=== PATIENT | male | born 1965 | race African-American/Black ===

== ENCOUNTER 2017-01-07 02:21 | Emergency (ER) | payer MEDICAID ==
[~2017-01-07] VITALS: Ht 170.2 cm; Wt 91.0 kg
[~2017-01-07 02:21] MED LIST: AMLO10TA4 PO; LISI10TA5 PO
[2017-01-07] MEDS ORDERED: ADENOSINE 3 MG/ML 2ML VIAL IV ONE ×2 (03:00→03:15)
[2017-01-07 03:12] LABS: BASOPHILS % 0.4 % (0.0-2.0); EOSINOPHILS % 1.8 % (0.0-5.0); HEMATOCRIT. 34.6 % (42.0-52.0); HEMOGLOBIN. 11.8 g/dL (14.0-18.0); LYMPHOCYTES % 24.9 % (20.0-50.0); MEAN CORPUSCULAR HEMOGLOBIN 29.4 pg (28.0-32.0); MEAN CORPUSCULAR VOLUME 86.4 fL (80.0-94.0); MEAN PLATELET VOLUME 7.9 fl (7.4-10.4); MONOCYTES % 8.6 % (2.0-8.0); NEUTROPHILS % 64.3 % (40.0-76.0); PLATELET 272 x1000/uL (130-400); RED CELL DISTRIBUTION WIDTH 14.9 % (11.6-14.6)
[2017-01-07 03:18] LABS: INR 1.1; PROTHROMBIN TIME 11.3 sec (9.4-11.6)
[2017-01-07 03:30] LABS: CARBON DIOXIDE 26 mEq/L (21-32); CHLORIDE 108 mEq/L (98-107); ETHANOL BLOOD < 10 mg/dL; TROPONIN I 0.07 ng/mL (0.00-0.04)
[2017-01-07] MEDS ORDERED: ASPIRIN 81MG TABLET PO NR (04:00)
[2017-01-07 04:37] LABS: CLARITY URINE CLEAR (CLEAR); COLOR URINE YELLOW (YELLOW); GLUCOSE URINE 1+ (NEGATIVE); KETONES URINE NEGATIVE (NEGATIVE); LEUKOCYTE ESTERASE URINE NEGATIVE (NEGATIVE); NITRITE URINE NEGATIVE (NEGATIVE); OCCULT BLOOD URINE TRACE (NEGATIVE); PROTEIN URINE 1+ (NEGATIVE); SPECIFIC GRAVITY URINE 1.016 (1.005-1.030); UROBILINOGEN URINE 0.2 E.U./dL (0.2-1.0)
[2017-01-07 04:55] LABS: *AMPHETAMINES SCREEN URINE NEGATIVE (NEGATIVE); *BARBITURATES SCREEN URINE NEGATIVE (NEGATIVE); *BENZODIAZEPINES SCREEN URINE NEGATIVE (NEGATIVE); *COCAINE SCREEN URINE NEGATIVE (NEGATIVE); CANNABINOID URINE SCREEN PRESUMTIVE POSITIVE (NEGATIVE); METHADONE URINE SCREEN NEGATIVE (NEGATIVE); OPIATES URINE SCREEN NEGATIVE (NEGATIVE); PHENCYCLIDINE URINE SCREEN NEGATIVE (NEGATIVE)
[2017-01-07 07:26] VITALS: BP 156/95
[2017-01-07] MEDS ORDERED: NA PHOS,M-B/NA PHOS,DI-BA ENEMA 118ML PR PRN (07:45)
[2017-01-07] MEDS ORDERED: ACETAMINOPHEN 325MG TABLET PO PRN (07:45)
[2017-01-07] MEDS ORDERED: HYDROCODONE/ACETAMINOPHEN 5/325MG TABLET PO PRN (07:45)
[2017-01-07] MEDS ORDERED: IPRATROPIUM/ALBUTEROL 0.5-3(2.5)MG/3ML NEB INH PRN (07:45)
[2017-01-07] MEDS ORDERED: GUAIFENESIN 200MG/10ML SUGAR FREE UDC PO PRN (07:45)
[2017-01-07] MEDS ORDERED: ACETAMINOPHEN 650MG/20.3ML UDC GT PRN (07:45)
[2017-01-07] MEDS ORDERED: MAGNESIUM/ALUMINUM HYDROXIDE/SIMETHICONE 30ML UDC PO PRN (07:45)
[2017-01-07] MEDS ORDERED: CLONIDINE 0.1MG TABLET PO PRN (07:45)
[2017-01-07] MEDS ORDERED: DOCUSATE SODIUM 100MG CAPSULE PO PRN (07:45)
[2017-01-07] MEDS ORDERED: ACETAMINOPHEN 650MG SUPP PR PRN (07:45)
[2017-01-07] MEDS ORDERED: ONDANSETRON HCL 4MG/2ML VIAL IV PRN (07:45)
[2017-01-07] MEDS ORDERED: SODIUM CHLORIDE 0.9% INJ 3ML FLUSH IVF SCH (14:00)
[2017-01-08] MEDS ORDERED: HYDR25TA PO (03:49)
[2017-01-08] MEDS ORDERED: OMEP20TA2 PO (03:49)
[2017-01-08] MEDS ORDERED: METO-396 PO (03:50)
== END 2017-01-07 07:40 | disposition left against medical advice (07) ==
LOC: ER 02:29 → CANBEDREQ 08:30
DX: I47.1 Supraventricular tachycardia (principal); E87.6 Hypokalemia; D64.9 Anemia, unspecified; I10 Essential (primary) hypertension
CPT/HCPCS: 36415; 71010; 80053; 80305; 81001; 83880; 84484; 85025; 85610; 93005; 99152; 99291; G0482; J0153; Z7610

== ENCOUNTER 2017-01-08 03:23 | Inpatient (IN) | payer MEDICAID ==
[~2017-01-08] VITALS: Ht 182.9 cm; Wt 104.3 kg
[2017-01-08] MEDS ORDERED: ONDANSETRON HCL 4MG/2ML VIAL IV STA (03:44)
[2017-01-08] MEDS ORDERED: ADENOSINE 3 MG/ML 2ML VIAL IV ONE (03:45)
[2017-01-08] MEDS ORDERED: HYDR25TA PO (03:49)
[2017-01-08] MEDS ORDERED: OMEP20TA2 PO (03:49)
[2017-01-08] MEDS ORDERED: METO-396 PO (03:50)
[2017-01-08 03:59] LABS: BASOPHILS % 0.5 % (0.0-2.0); EOSINOPHILS % 1.7 % (0.0-5.0); HEMATOCRIT. 35.8 % (42.0-52.0); HEMOGLOBIN. 12.3 g/dL (14.0-18.0); LYMPHOCYTES % 22.7 % (20.0-50.0); MEAN CORPUSCULAR HEMOGLOBIN 29.4 pg (28.0-32.0); MEAN CORPUSCULAR VOLUME 85.6 fL (80.0-94.0); MEAN PLATELET VOLUME 7.6 fl (7.4-10.4); MONOCYTES % 7.1 % (2.0-8.0); PLATELET 275 x1000/uL (130-400); RED BLOOD CELL COUNT 4.17 mill/uL (4.7-6.1); RED CELL DISTRIBUTION WIDTH 15.1 % (11.6-14.6)
[2017-01-08 04:15] LABS: INR 1.1; PROTHROMBIN TIME 10.9 sec (9.4-11.6)
[2017-01-08 04:16] LABS: CARBON DIOXIDE 27 mEq/L (21-32); CHLORIDE 107 mEq/L (98-107); TROPONIN I 0.05 ng/mL (0.00-0.04)
[2017-01-08 08:00] VITALS: BP 148/103
[2017-01-08 09:31] VITALS: BP 148/103
[2017-01-08] MEDS ORDERED: TEMAZEPAM 15MG CAPSULE PO PRN (10:15)
[2017-01-08] MEDS ORDERED: ONDANSETRON HCL 4MG/2ML VIAL IV PRN (10:15)
[2017-01-08] MEDS ORDERED: HYDROCODONE/ACETAMINOPHEN 5/325MG TABLET PO PRN (10:15)
[2017-01-08] MEDS ORDERED: ACETAMINOPHEN 325MG TABLET PO PRN (10:15)
[2017-01-08] MEDS: LISINOPRIL 20MG TABLET PO SCH (10:47)
[2017-01-08] MEDS: FAMOTIDINE 20MG TABLET PO SCH ×2 (10:47→21:08)
[2017-01-08] MEDS: HYDROCHLOROTHIAZIDE 25MG TABLET PO SCH (10:48)
[2017-01-08] MEDS: AMLODIPINE 10MG TABLET PO SCH (10:50)
[2017-01-08] MEDS: ENOXAPARIN 30MG/0.3ML SYR SUBCUT SCH ×2 (10:51→21:11)
[2017-01-08] MEDS: METOPROLOL TARTRATE 25MG TABLET PO SCH ×2 (10:57→21:08)
[2017-01-08 12:00] VITALS: BP 173/102
[2017-01-08] MEDS ORDERED: POTASSIUM CHLORIDE INJ 40 MEQ in DEXT 5% WATER 250 ML IV NR (12:00)
[2017-01-08 16:00] VITALS: BP 146/101
[2017-01-08] MEDS ORDERED: CLONIDINE 0.1MG TABLET PO PRN (17:30)
[2017-01-08 19:23] VITALS: BP 133/89
[2017-01-08 20:00] VITALS: BP 154/104
[2017-01-09] VITALS: BP 138/89
[2017-01-09 06:00] VITALS: BP 139/93
[2017-01-09 06:33] LABS: BASOPHILS % 0.4 % (0.0-2.0); EOSINOPHILS % 1.6 % (0.0-5.0); HEMATOCRIT. 34.9 % (42.0-52.0); HEMOGLOBIN. 11.9 g/dL (14.0-18.0); LYMPHOCYTES % 21.8 % (20.0-50.0); MEAN CORPUSCULAR HEMOGLOBIN 29.1 pg (28.0-32.0); MEAN CORPUSCULAR VOLUME 85.4 fL (80.0-94.0); MONOCYTES % 7.4 % (2.0-8.0); NEUTROPHILS % 68.8 % (40.0-76.0); PLATELET 248 x1000/uL (130-400); RED BLOOD CELL COUNT 4.09 mill/uL (4.7-6.1); RED CELL DISTRIBUTION WIDTH 14.8 % (11.6-14.6)
[2017-01-09 07:34] LABS: CARBON DIOXIDE 28 mEq/L (21-32); CHLORIDE 105 mEq/L (98-107); HDL CHOLESTEROL 35 mg/dL (40-59); LDL CHOLESTEROL 82 mg/dL (5-100)
[2017-01-09 07:59] VITALS: BP 142/95
[2017-01-09] MEDS: AMLODIPINE 10MG TABLET PO SCH (08:46)
[2017-01-09] MEDS: LISINOPRIL 20MG TABLET PO SCH (08:46)
[2017-01-09] MEDS: HYDROCHLOROTHIAZIDE 25MG TABLET PO SCH (08:46)
[2017-01-09] MEDS: ENOXAPARIN 30MG/0.3ML SYR SUBCUT SCH (08:47)
[2017-01-09] MEDS: METOPROLOL TARTRATE 25MG TABLET PO SCH (08:47)
[2017-01-09] MEDS: FAMOTIDINE 20MG TABLET PO SCH (08:47)
[2017-01-09] MEDS ORDERED: POTASSIUM CHLORIDE 20MEQ TABLET SR PO SCH (09:00)
[2017-01-09 11:17] VITALS: BP 144/100
[2017-01-09 11:18] VITALS: BP 145/91
[2017-01-09 15:21] VITALS: BP 145/91
[2017-01-09] MEDS ORDERED: METOPROLOL TARTRATE 25MG TABLET PO SCH (21:00)
== END 2017-01-09 17:50 | disposition home or self-care (01) | DRG 201 ==
LOC: ER 03:23 → EDBEDREQ 05:12 → ENRESERV 07:36 → 6WST 07:36
PROVIDERS: ADMIT Internal Medicine; ATTEND Internal Medicine
DX: I47.1 Supraventricular tachycardia (principal); N17.9 Acute kidney failure, unspecified; E44.1 Mild protein-calorie malnutrition; I10 Essential (primary) hypertension; E87.6 Hypokalemia; N28.9 Disorder of kidney and ureter, unspecified; Z82.3 Family history of stroke; Z82.49 Family history of ischemic heart disease and other diseases of the circulatory system; F14.10 Cocaine abuse, uncomplicated; I16.9 Hypertensive crisis, unspecified
CPT/HCPCS: 36415; 71010; 80048; 80053; 80061; 80305; 81001; 83036; 83880; 84443; 84484; 85025; 85610; 93005; 93306; 96374; 96375; 99152; 99285; 99291; G0482; J0153; J1650; J2405; J3480; J7060

== ENCOUNTER 2017-06-04 05:09 | Emergency (ER) | payer MEDICAID ==
[~2017-06-04] VITALS: Ht 182.9 cm; Wt 105.6 kg
[~2017-06-04 05:09] MED LIST changes: +HYDR25TA PO; -LISI10TA5 PO; +OMEP20TA2 PO
[2017-06-04] MEDS ORDERED: CARV25TA47 PO (05:30)
[2017-06-04] MEDS ORDERED: ASPI-986 PO (05:30)
[2017-06-04 09:04] LABS: CHLORIDE 103 mEq/L (98-107)
[2017-06-04 09:06] LABS: INR 1.1; PARTIAL THROMBOPLASTIN TIME 29.9 sec (23.4-31.0); PROTHROMBIN TIME 11.2 sec (9.4-11.6)
[2017-06-04 09:15] LABS: BASOPHILS % 0.6 % (0.0-2.0); EOSINOPHILS % 1.6 % (0.0-5.0); HEMATOCRIT. 36.8 % (42.0-52.0); HEMOGLOBIN. 11.9 g/dL (14.0-18.0); LYMPHOCYTES % 18.3 % (20.0-50.0); MEAN CORPUSCULAR HEMOGLOBIN 27.8 pg (28.0-32.0); MEAN CORPUSCULAR VOLUME 85.9 fL (80.0-94.0); MONOCYTES % 8.3 % (2.0-8.0); NEUTROPHILS % 71.2 % (40.0-76.0); PLATELET 276 x1000/uL (130-400); RED BLOOD CELL COUNT 4.28 mill/uL (4.7-6.1); RED CELL DISTRIBUTION WIDTH 15.2 % (11.6-14.6)
[2017-06-04 11:05] VITALS: BP 166/99
[2017-07-24] MEDS ORDERED: LISI-186 PO (07:37)
[2017-07-24] MEDS ORDERED: METF500T4 PO (07:37)
== END 2017-06-04 11:21 | disposition home or self-care (01) ==
LOC: ER 05:09
DX: I11.0 Hypertensive heart disease with heart failure (principal); I50.9 Heart failure, unspecified; E78.00 Pure hypercholesterolemia, unspecified; F12.10 Cannabis abuse, uncomplicated; Z79.82 Long term (current) use of aspirin
CPT/HCPCS: 36415; 71045; 80053; 83880; 85025; 85610; 85730; 93005; 99285; Z7610

== ENCOUNTER 2017-07-11 00:31 | Emergency (ER) | payer MEDICAID ==
[~2017-07-11] VITALS: Ht 182.9 cm; Wt 109.0 kg
[~2017-07-11 00:31] MED LIST changes: +ASPI-986 PO; +CARV25TA47 PO
[2017-07-11] MEDS ORDERED: KETOROLAC 60MG/2ML VIAL IM ONE (04:00)
[2017-07-11 04:10] VITALS: BP 132/80
== END 2017-07-11 05:51 | disposition home or self-care (01) ==
LOC: ER 00:31
DX: M79.671 Pain in right foot (principal); I11.0 Hypertensive heart disease with heart failure; I50.9 Heart failure, unspecified; E78.00 Pure hypercholesterolemia, unspecified; F12.10 Cannabis abuse, uncomplicated; Z79.82 Long term (current) use of aspirin; W10.9XXA Fall (on) (from) unspecified stairs and steps, initial encounter
CPT/HCPCS: 73630; 96372; 99284; J1885; Z7610

== ENCOUNTER 2017-07-18 05:24 | Emergency (ER) | payer MEDICAID ==
[~2017-07-18] VITALS: Ht 182.9 cm; Wt 112.0 kg
[2017-07-18] MEDS ORDERED: NITROGLYCERIN OINT 1GM/INCH UDPKT TD STA (06:49)
[2017-07-18] MEDS ORDERED: FUROSEMIDE 40MG/4ML VIAL IV STA (06:49)
[2017-07-18] MEDS ORDERED: ASPIRIN 325MG TABLET PO ONE (07:00)
[2017-07-18 07:15] LABS: BASOPHILS % 0.7 % (0.0-2.0); EOSINOPHILS % 1.7 % (0.0-5.0); HEMATOCRIT. 32.3 % (42.0-52.0); HEMOGLOBIN. 11.1 g/dL (14.0-18.0); LYMPHOCYTES % 18.4 % (20.0-50.0); MEAN CORPUSCULAR HEMOGLOBIN 29.2 pg (28.0-32.0); MEAN CORPUSCULAR VOLUME 85.4 fL (80.0-94.0); MEAN PLATELET VOLUME 8.1 fl (7.4-10.4); MONOCYTES % 8.5 % (2.0-8.0); NEUTROPHILS % 70.7 % (40.0-76.0); PLATELET 242 x1000/uL (130-400); RED BLOOD CELL COUNT 3.79 mill/uL (4.7-6.1); RED CELL DISTRIBUTION WIDTH 16.1 % (11.6-14.6)
[2017-07-18 07:20] LABS: INR 1.1
[2017-07-18 07:24] LABS: CHLORIDE 109 mEq/L (98-107)
[2017-07-18 07:30] LABS: TROPONIN I < 0.02 ng/mL (0.00-0.04)
[2017-07-18] MEDS ORDERED: POTASSIUM CHLORIDE 20MEQ TABLET SR PO ONE (07:30)
[2017-07-18 11:00] VITALS: BP 168/95
== END 2017-07-18 11:40 | disposition left against medical advice (07) ==
LOC: ER 05:24 → EDBEDREQTM 06:58 → EDBEDREQ 06:58 → EDBEDREQSVC 06:58 → EDBEDREQTM 07:31 → EDBEDREQSVC 07:31 → EDBEDREQ 07:31 → ER 11:40 → CANBEDREQ 14:46
DX: I11.0 Hypertensive heart disease with heart failure (principal); I50.9 Heart failure, unspecified; D64.9 Anemia, unspecified; E87.6 Hypokalemia; N28.9 Disorder of kidney and ureter, unspecified; F12.10 Cannabis abuse, uncomplicated; K21.9 Gastro-esophageal reflux disease without esophagitis; Z79.82 Long term (current) use of aspirin
CPT/HCPCS: 36415; 71045; 80053; 83605; 83690; 83880; 84484; 85025; 85610; 93005; 96374; 99285; J1940; Z7610

== ENCOUNTER 2017-09-24 04:40 | Emergency (ER) | payer MEDICAID ==
[~2017-09-24] VITALS: Ht 185.4 cm; Wt 102.5 kg
[~2017-09-24 04:40] MED LIST changes: -AMLO10TA4 PO; -ASPI-986 PO; +FURO40TA5 PO; -HYDR25TA PO; +LISI-604 PO; +SPIR25TA4 PO
[2017-09-24] MEDS ORDERED: IPRATROPIUM BROMIDE (0.02%) 0.5MG/2.5ML NEB HHN STA (05:15)
[2017-09-24] MEDS ORDERED: FUROSEMIDE 40MG/4ML VIAL IV STA (05:15)
[2017-09-24] MEDS ORDERED: ALBUTEROL (0.083%) 2.5MG/3ML NEB HHN STA (05:15)
[2017-09-24 05:33] LABS: BASOPHILS % 0.4 % (0.0-2.0); EOSINOPHILS % 2.4 % (0.0-5.0); HEMATOCRIT. 32.9 % (42.0-52.0); HEMOGLOBIN. 11.3 g/dL (14.0-18.0); LYMPHOCYTES % 19.3 % (20.0-50.0); MEAN CORPUSCULAR VOLUME 84.7 fL (80.0-94.0); MEAN PLATELET VOLUME 7.7 fl (7.4-10.4); MONOCYTES % 7.3 % (2.0-8.0); NEUTROPHILS % 70.6 % (40.0-76.0); PLATELET 243 x1000/uL (130-400); RED BLOOD CELL COUNT 3.89 mill/uL (4.7-6.1); RED CELL DISTRIBUTION WIDTH 15.2 % (11.6-14.6)
[2017-09-24 05:37] LABS: CHLORIDE 107 mEq/L (98-107)
[2017-09-24 08:22] VITALS: BP 162/96
== END 2017-09-24 08:23 | disposition home or self-care (01) ==
LOC: ER 05:37
DX: I11.0 Hypertensive heart disease with heart failure (principal); I50.9 Heart failure, unspecified; R94.31 Abnormal electrocardiogram [ECG] [EKG]; F12.10 Cannabis abuse, uncomplicated; Z87.891 Personal history of nicotine dependence; Z79.01 Long term (current) use of anticoagulants; Z98.890 Other specified postprocedural states
CPT/HCPCS: 36415; 71045; 80053; 83880; 84484; 85025; 93005; 94640; 96374; 99285; J1940; J7611; Z7610

== ENCOUNTER 2017-11-07 00:57 | Emergency (ER) | payer MEDICAID ==
[~2017-11-07] VITALS: Ht 182.9 cm; Wt 104.0 kg
[~2017-11-07 00:57] MED LIST changes: -SPIR25TA4 PO; +SPIR25TA6 PO
[2017-11-07 01:48] LABS: BASOPHILS % 0.7 % (0.0-2.0); EOSINOPHILS % 2.1 % (0.0-5.0); HEMATOCRIT. 33.2 % (42.0-52.0); HEMOGLOBIN. 11.2 g/dL (14.0-18.0); LYMPHOCYTES % 23.7 % (20.0-50.0); MEAN CORPUSCULAR HEMOGLOBIN 28.9 pg (28.0-32.0); MEAN CORPUSCULAR VOLUME 85.5 fL (80.0-94.0); MONOCYTES % 9.7 % (2.0-8.0); NEUTROPHILS % 63.8 % (40.0-76.0); PLATELET 233 x1000/uL (130-400); RED BLOOD CELL COUNT 3.89 mill/uL (4.7-6.1); RED CELL DISTRIBUTION WIDTH 16.2 % (11.6-14.6)
[2017-11-07 01:55] LABS: CHLORIDE 109 mEq/L (98-107); INR 1.2; PROTHROMBIN TIME 12.3 sec (9.4-11.6)
[2017-11-07] MEDS ORDERED: FUROSEMIDE 20MG/2ML VIAL IVP SCH (05:10)
[2017-11-07 06:25] VITALS: BP 153/99
== END 2017-11-07 06:59 | disposition home or self-care (01) ==
LOC: ER 01:02
DX: I11.0 Hypertensive heart disease with heart failure (principal); I50.9 Heart failure, unspecified; E88.09 Other disorders of plasma-protein metabolism, not elsewhere classified; R94.31 Abnormal electrocardiogram [ECG] [EKG]; E87.6 Hypokalemia; E78.00 Pure hypercholesterolemia, unspecified
CPT/HCPCS: 36415; 71045; 80053; 83880; 84484; 85025; 85610; 93005; 96374; 99285; J1940; Z7610

== ENCOUNTER 2017-11-26 00:37 | Emergency (ER) | payer MEDICAID ==
[~2017-11-26] VITALS: Ht 182.9 cm; Wt 109.0 kg
[2017-11-26] MEDS ORDERED: FUROSEMIDE 40MG/4ML VIAL IV ONE (02:15)
[2017-11-26 02:43] LABS: BASOPHILS % 0.4 % (0.0-2.0); EOSINOPHILS % 2.1 % (0.0-5.0); HEMATOCRIT. 33.7 % (42.0-52.0); HEMOGLOBIN. 11.2 g/dL (14.0-18.0); LYMPHOCYTES % 24.5 % (20.0-50.0); MEAN CORPUSCULAR HEMOGLOBIN 28.7 pg (28.0-32.0); MEAN CORPUSCULAR VOLUME 86.5 fL (80.0-94.0); MEAN PLATELET VOLUME 8.4 fl (7.4-10.4); PLATELET 206 x1000/uL (130-400); RED BLOOD CELL COUNT 3.89 mill/uL (4.7-6.1)
[2017-11-26 02:45] LABS: CHLORIDE 109 mEq/L (98-107)
[2017-11-26 02:48] LABS: INR 1.1; PARTIAL THROMBOPLASTIN TIME 28.1 sec (23.4-31.0); PROTHROMBIN TIME 11.6 sec (9.4-11.6)
[2017-11-26] MEDS ORDERED: POTASSIUM CHLORIDE 20MEQ TABLET SR PO NR (03:15)
[2017-11-26 11:40] VITALS: BP 171/80
== END 2017-11-26 12:05 | disposition left against medical advice (07) ==
LOC: ER 01:30 → EDBEDREQ 02:23 → EDBEDREQTM 03:18 → EDBEDREQ 03:18 → ER 12:05 → CANRESERV 14:02 → ENRESERV 14:02 → CANBEDREQ 16:52
DX: I11.0 Hypertensive heart disease with heart failure (principal); N17.9 Acute kidney failure, unspecified; R60.0 Localized edema; E87.6 Hypokalemia; K21.9 Gastro-esophageal reflux disease without esophagitis; I50.9 Heart failure, unspecified; Z98.890 Other specified postprocedural states
CPT/HCPCS: 36415; 71045; 80053; 83880; 84484; 85025; 85610; 85730; 93005; 96374; 99285; J1940; Z7610